=== PATIENT | female | born 1980 | race Caucasian/White ===

== ENCOUNTER 2018-08-21 20:24 | Inpatient (IN) ==
[2018-08-21] MEDS ORDERED: BUTORPHANOL 2 MG/ML VIAL IV PRN (20:53)
[2018-08-21] MEDS ORDERED: ONDANSETRON 4 MG/2 ML VIAL IV PRN (20:53)
[2018-08-21 21:15] LABS: Basophils # 0.1 10*3/uL (0.0-0.2); Basophils % 0.6 % (0.0-0.8); Eosinophils # 0.1 10*3/uL (0.0-0.87); Eosinophils % 0.9 % (0.00-10.9); Hematocrit 32.5 VOL% (35.7-47.0); Hemoglobin 10.1 GM/DL (12.0-16.0); Immature Granulocytes % 1.3 %; Immature Granulocytes Absolute 0.14 #; Lymphocytes # 2.6 10*3/uL (1.4-4.0); Lymphocytes % 23.8 % (21.3-54.2); Mean Corpuscular HGB Conc 31.1 GM/DL (32-36); Mean Corpuscular Hemoglobin 27 PG (27-34); Mean Corpuscular Volume 87.4 FL (87-102); Mean Platelet Volume 10.5 FL (9.6-12.0); Monocytes # 0.9 10*3/uL (0.11-0.8); Monocytes % 8.1 % (1.7-12.7); Neutrophils # 7.2 10*3/uL (1.4-7.4); Neutrophils % 65.3 % (38.7-73.9); Platelet Count 388 T/CUMM (130-400); Red Blood Count 3.72 MC/CUMM (3.8-5.5); Red Cell Distribution Width 13.3 % (9.3-17.3); White Blood Count 11.1 T/CUMM (4-12)
[2018-08-21] MEDS: LABETALOL 200 MG TABLET PO SCH (23:45)
[2018-08-21] MEDS: ALUMINUM/MAGNES/SIMETH MAX STR 30 ML UDCUP PO PRN (23:45)
[2018-08-22] MEDS: LABETALOL 200 MG TABLET PO SCH ×3 (05:55→21:16)
[2018-08-22] MEDS: ALUMINUM/MAGNES/SIMETH MAX STR 30 ML UDCUP PO PRN (10:42)
[2018-08-22] MEDS ORDERED: LACTATED RINGERS 1,000 ML IV ONE ×2 (11:20→12:03)
[2018-08-22] MEDS: LACTATED RINGERS 1,000 ML IV SCH ×2 (11:22→13:02)
[2018-08-22] MEDS ORDERED: hydrOXYzine HCL 25 MG/1 ML VIAL IM PRN (12:03)
[2018-08-22] MEDS ORDERED: FAMOTIDINE 20 MG/2 ML VIAL IV ONE (12:03)
[2018-08-22] MEDS ORDERED: diphenhydrAMINE 50 MG/1 ML VIAL IV PRN ×2 (12:03)
[2018-08-22] MEDS ORDERED: ePHEDrine 50 MG/ML AMP IV PRN (12:03)
[2018-08-22] MEDS ORDERED: CITRIC ACID/SODIUM CITRATE 30 ML UDCUP PO ONE (12:03)
[2018-08-22] MEDS ORDERED: NALOXONE 0.4 MG/ML VIAL IV PRN (12:03)
[2018-08-22] MEDS ORDERED: LACTATED RINGERS 500 ML IV ONE (12:03)
[2018-08-22] MEDS ORDERED: PROMETHAZINE 25 MG/1 ML VIAL IM ONE (12:03)
[2018-08-22] MEDS ORDERED: fentaNYL 2 MCG/ROPIV 0.2% EPID 100 ML EPIDURAL SCH (12:30)
[2018-08-22] MEDS ORDERED: CLINDAMYCIN INJ 900 MG in PREMIX 1 EACH IV SCH (12:30)
[2018-08-22] MEDS ORDERED: LACTATED RINGERS 1,000 ML IV SCH (12:30)
[2018-08-22] MEDS ORDERED: miSOPROStol 200 MCG TABLET ONE (13:33)
[2018-08-22] MEDS ORDERED: CARBOPROST TROMETHAMINE 250 MCG/ML AMP IM ONE (13:34)
[2018-08-22] MEDS ORDERED: METHYLERGONOVINE 0.2 MG/1 ML AMP ONE (13:34)
[2018-08-22] MEDS ORDERED: LIDOCAINE 1% 50 ML VIAL ONE (13:45)
[2018-08-22] MEDS ORDERED: OXYTOCIN/LR 20 UNIT/1,000 ML BAG IV SCH (14:00)
[2018-08-22] MEDS ORDERED: MEPERIDINE 50 MG/1 ML VIAL ONE (14:17)
[2018-08-22] MEDS ORDERED: MEASLES/MUMPS/RUBELLA VACCINE 0.5 ML VIAL SUBCUT ONE (14:41)
[2018-08-22] MEDS ORDERED: BISACODYL 10 MG SUPP RECTAL PRN (14:41)
[2018-08-22] MEDS ORDERED: oxyCODONE/ACETAMINOPHEN 5-325 MG TABLET PO PRN (14:41)
[2018-08-22] MEDS ORDERED: WITCH HAZEL PADS 100/JAR TOP PRN (14:41)
[2018-08-22] MEDS ORDERED: ONDANSETRON 4 MG/2 ML VIAL IV PRN (14:41)
[2018-08-22] MEDS ORDERED: DIPH/TET/ACEL PERT BOOSTER VACCINE 0.5 ML VIAL IM ONE (14:41)
[2018-08-22] MEDS ORDERED: OXYTOCIN/LR 20 UNIT/1,000 ML BAG IV ONE (14:41)
[2018-08-22] MEDS ORDERED: HYDROCORTISONE 2.5% RECTAL CREAM 30 GM TUBE TOP PRN (14:41)
[2018-08-22] MEDS ORDERED: LANOLIN 50% CREAM 0.3 OZ TUBE TOP PRN (14:41)
[2018-08-22] MEDS ORDERED: BENZOCAINE 20%/MENTHOL 0.5% SPRAY 56 GM CAN TOP PRN (14:41)
[2018-08-22] MEDS ORDERED: ACETAMINOPHEN 325 MG TABLET PO PRN (14:41)
[2018-08-22] MEDS ORDERED: RHO(D) IMMUNE GLOBULIN 300 MCG SYRINGE IM ONE (14:41)
[2018-08-22 14:59] LABS: Cord Arterial Blood HCO3 16.7 MMOL/L
[2018-08-22] MEDS: DOCUSATE SODIUM 100 MG CAPSULE PO SCH (21:16)
[2018-08-22] MEDS: IBUPROFEN 800 MG TABLET PO PRN (21:20)
[2018-08-23 07:08] LABS: Basophils # 0.1 10*3/uL (0.0-0.2); Basophils % 0.3 % (0.0-0.8); Eosinophils # 0.1 10*3/uL (0.0-0.87); Hematocrit 25.8 VOL% (35.7-47.0); Immature Granulocytes % 0.9 %; Immature Granulocytes Absolute 0.13 #; Lymphocytes # 2.6 10*3/uL (1.4-4.0); Lymphocytes % 18.1 % (21.3-54.2); Mean Corpuscular Hemoglobin 27 PG (27-34); Mean Corpuscular Volume 88.4 FL (87-102); Mean Platelet Volume 11.2 FL (9.6-12.0); Monocytes # 1.1 10*3/uL (0.11-0.8); Monocytes % 7.9 % (1.7-12.7); Neutrophils # 10.3 10*3/uL (1.4-7.4); Neutrophils % 71.8 % (38.7-73.9); Red Cell Distribution Width 13.5 % (9.3-17.3); White Blood Count 14.3 T/CUMM (4-12)
[2018-08-23 07:09] LABS: Platelet Count 289 T/CUMM (130-400); Red Blood Count 2.92 MC/CUMM (3.8-5.5)
[2018-08-23] MEDS: LABETALOL 200 MG TABLET PO SCH ×2 (07:13→13:51)
[2018-08-23] MEDS: DOCUSATE SODIUM 100 MG CAPSULE PO SCH ×2 (08:32→20:09)
[2018-08-23] MEDS: FERROUS SULFATE 325 MG TABLET PO SCH ×2 (08:43→20:09)
[2018-08-23] MEDS: oxyCODONE/ACETAMINOPHEN 5-325 MG TABLET PO PRN ×2 (15:22→22:29)
[2018-08-23] MEDS ORDERED: FUROSEMIDE 40 MG/4 ML VIAL IV ONE (15:50)
[2018-08-23] MEDS: IBUPROFEN 800 MG TABLET PO PRN (18:13)
[2018-08-24] MEDS: LABETALOL 200 MG TABLET PO SCH ×2 (01:18→06:26)
[2018-08-24 07:04] VITALS: BP 135/63
[2018-08-24] MEDS: IBUPROFEN 800 MG TABLET PO PRN (08:22)
[2018-08-24] MEDS ORDERED: FUROSEMIDE 40 MG/4 ML VIAL IV ONE (09:17)
[2018-08-24] MEDS: DOCUSATE SODIUM 100 MG CAPSULE PO SCH (09:36)
[2018-08-24] MEDS: FERROUS SULFATE 325 MG TABLET PO SCH (09:36)
[2018-08-24] MEDS: oxyCODONE/ACETAMINOPHEN 5-325 MG TABLET PO PRN (09:40)
== END 2018-08-24 12:40 | disposition home or self-care (01) | DRG 807 ==
LOC: N.LDOUT 20:24 → N.LD 20:31 → N.OB 08-22 17:41
PROVIDERS: ADMIT Specialist; ATTEND Specialist